=== PATIENT | male | born 1995 | race Caucasian/White ===

== ENCOUNTER 2017-05-16 08:50 | Emergency (ER) | payer SELFPAY ==
[~2017-05-16] VITALS: Ht 180.3 cm; Wt 87.8 kg
[~2017-05-16 08:50] MED LIST: MOTRIN600 MG PO
[2017-05-16 09:25] LABS: HEMATOCRIT 43.8 % (38.0-50.0); MCH 28.8 PG (29.0-34.0); MCHC 34.2 G/DL (30.0-36.0); MCV 84.2 FL (86-99); MEAN PLAT.VOLUME 10.2 uM^3 (9.0-12.4); PLATELET COUNT 248 K/uL (156-360); RBC DIS.WIDTH-CV 12.1 % (11.8-14.6); RBC DIS.WIDTH-SD 36.4 % (39-53); WHITE BLOOD COUNT 9.7 K/uL (4.1-10.2)
[2017-05-16 09:37] LABS: CHLORIDE 104 mEq/L (99-109); POTASSIUM 3.8 mEq/L (3.7-5.4); SODIUM 138 mEq/L (136-147)
[2017-05-16 09:40] LABS: GLUCOSE 207 mg/dL (70-99)
[2017-05-16 09:42] LABS: ANION GAP 9 MEQ/L (2-14)
[2017-05-16 09:44] LABS: GFR ESTIMATE (CALCULATED) > 59 mL/min/
[2017-05-16 09:45] LABS: UREA NITROGEN (BUN) 16 mg/dL (9-23)
[2017-05-16 10:52] LABS: TROP-I INTERPRETATION NEGATIVE; TROPONIN-I < 0.01 ng/mL (0.0-0.30)
[2017-05-16] MEDS ORDERED: PERCOCET 5/31 TABLET PO (11:06)
[2017-05-16] MEDS ORDERED: FLEXERIL10 MG PO (11:06)
[2017-05-16 11:20] VITALS: BP 142/88
== END 2017-05-16 11:23 | disposition home or self-care (01) ==
LOC: TRA 08:50 → EME 08:50 → TRA 11:23
PROVIDERS: Nurse Practitioner Family
DX: S42.101A Fracture of unspecified part of scapula, right shoulder, initial encounter for closed fracture (principal); S10.93XA Contusion of unspecified part of neck, initial encounter; S40.011A Contusion of right shoulder, initial encounter; W30.9XXA Contact with unspecified agricultural machinery, initial encounter; Y99.0 Civilian activity done for income or pay
CPT/HCPCS: 70450; 70498; 71260; 73010; 73030; 73060; 80048; 84484; 85027; 86850; 86900; 86901; 93005; 99281; 99285; J2405; J3010; J7030